=== PATIENT | female | born 1940 | race Two or more races ===

== ENCOUNTER 2017-08-01 03:18 | Inpatient (IN) | payer MEDICARE ==
[~2017-08-01] VITALS: Ht 149.9 cm; Wt 65.3 kg
--- NOTE | 2017-08-01 05:40 | NUR ---
GPS/DEPOSITING MACHINE OPERATOR NOTES: PT. ARRIVED TO UNIT. VERBALLY ABUSIVE AND UNCOOPERATIVE. PT. DIRECTED TO GO TO ROOM AND BED. PT. AGITATED AND STATING " I WILL FALL, I WILL FALL AND YOU CANT DO NOTHING ABOUT IT." PT. AMBULATORY. WILL CONTINUE TO MONITOR.
[2017-08-01] MEDS ORDERED: ASPI-1169 PO (05:56)
[2017-08-01] MEDS ORDERED: ATOR20TA PO (05:56)
[2017-08-01] MEDS ORDERED: ACETAMINOPHEN 325 MG TABLET PO PRN (06:00)
[2017-08-01] MEDS ORDERED: LORAZEPAM 0.5 MG TABLET PO PRN (06:00)
[2017-08-01] MEDS ORDERED: MAGNESIUM HYDROXIDE 30 ML UDC PO PRN (06:00)
[2017-08-01] MEDS ORDERED: MAG HYDROX/AL HYDROX/SIMETH 30 ML UDC PO PRN (06:00)
[2017-08-01] MEDS ORDERED: TEMAZEPAM 7.5 MG CAPSULE PO PRN (06:00)
[2017-08-01] MEDS ORDERED: OMEG1CAP55 PO (06:06)
[2017-08-01] MEDS ORDERED: MAGN400T6 PO (06:06)
[2017-08-01] MEDS ORDERED: DOCU100C36 PO (06:06)
[2017-08-01] MEDS ORDERED: CHOL20004 PO (06:06)
[2017-08-01] MEDS ORDERED: NAPR-1192 PO (06:06)
[2017-08-01] MEDS ORDERED: TRAM100T14 PO (06:06)
[2017-08-01] MEDS ORDERED: [UNRECOGNIZED DRUG - CODE] PO (06:06)
[2017-08-01] MEDS ORDERED: ALPR0.5T8 PO (06:06)
--- NOTE | 2017-08-01 06:32 | NUR ---
GPS/SUPERVISOR BUILDING MAINTENANCE ADMISSION NOTES: RECEIVED A 76YR OLD FEMALE ADMITTED ON A 5150 HOLD DTS. PT. ORIENTED TO UNIT POLICY, PROCEDURE, AND PROTOCOLS. PT HAD NO CONTRABANDS WITH HER. BELONGINGS LOGGED. SAFETY ENVIRONMENT OBSERVED WITH CALL GORDON WITHIN REACH. BED IN LOCKED POSITION. MEDICAL AND PSYCH NOTIFIED OF PT. ADMISSION TO UNIT. NEXT OF KIN CALLED AND LEFT MESSAGE TO CALL BACK UNIT. WILL CONTINUE TO MONITOR.
[2017-08-01 08:00] VITALS: BP 150/61
--- NOTE | 2017-08-01 08:00 | NUR ---
GPS/RN PT IS AGITATED WANTS TO LEAVE THE UNIT. CALLING THE NURSING STUFF NAMES. REFUSED SKIN ASSESSMENT AND RESISTIVE TO CARE.
[2017-08-01] MEDS ORDERED: OMEG-110 PO (08:52)
[2017-08-01] MEDS ORDERED: MAGN200T4 PO (08:52)
--- NOTE | 2017-08-01 10:00 | NUR ---
GPS/RN DR BARRIGA AWARE OF ADMISSION
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
[2017-08-01 16:00] VITALS: BP 134/83
[2017-08-01] MEDS: QUETIAPINE FUMARATE 25 MG TABLET PO SCH (17:00)
--- NOTE | 2017-08-01 17:21 | NUR ---
GPS/RN PT REFUSED CT W/O CONTRAST. PT STATES: " I NEED TO DISCUSS THAT WITH MY DOCTOR". SHOSHANA RN/CHARGE NURSE WITNESSED THE CONVERSATION.
--- NOTE | 2017-08-01 17:53 | NUR ---
PT REFUSED CT SCAN. RN IS AWARE TO REORDER IF NEEDED.
--- NOTE | 2017-08-01 18:03 | NUR ---
GPS/RN PT REFUSED SEROQUEL PO OFFERED X3
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
--- NOTE | 2017-08-01 19:39 | NUR ---
PATIENT IS CALM, AND QUIET AT THIS TIME, [id number] TO HELP HER CALL HER RELATIVES, PATIENT WAS HAPPY AFTER SHE MADE A CALL.
[2017-08-01] MEDS: MIRTAZAPINE 15 MG TABLET PO SCH (19:55)
--- NOTE | 2017-08-01 19:55 | NUR ---
REMERON 7.5 MG TAB PO DUE AT 1999 REFUSED BY PATIENT, EXPLAINED X2,THE BENEFITS OF THE MEDICATION, PATIENT STILL REFUSED. PATIENT IS A/O X3.
[2017-08-01 20:00] VITALS: BP 144/55
[2017-08-01] MEDS ORDERED: TRAMADOL HCL 50 MG TABLET PO PRN (21:00)
[2017-08-02 07:26] LABS: BASOPHILS % (AUTO) 0.6 % (0.0-2.0); EOSINOPHILS # (AUTO) 0.1 /CMM (0.0-0.7); EOSINOPHILS % (AUTO) 1.1 % (0.0-6.0); HEMATOCRIT 42 % (33-45); HEMOGLOBIN 14.5 g/dL (11.5-14.8); LYMPHOCYTES # (AUTO) 2.4 /CMM (0.8-4.8); LYMPHOCYTES % (AUTO) 34.7 % (20.0-44.0); MEAN CORPUSCULAR HEMOGLOBIN 32 PG (26.0-33.0); MEAN CORPUSCULAR HGB CONC 34 g/dl (31.0-36.0); MEAN CORPUSCULAR VOLUME 94 fL (82-100); MONOCYTES # (AUTO) 0.5 /CMM (0.1-1.30); NEUTROPHILS # (AUTO) 3.9 /CMM (1.8-8.9); NEUTROPHILS % (AUTO) 56.6 % (43.0-81.0); PLATELET COUNT (AUTO) 178 /CMM (150-450); RDW COEFFICIENT OF VARIATION 13.5 (11.5-15.0); RED BLOOD CELL COUNT(AUTO) 4.51 MIL/uL (4.0-5.2); WHITE BLOOD COUNT (AUTO) 6.8 K/uL (4.3-11.0)
[2017-08-02 07:55] LABS: ALANINE AMINOTRANSFERASE 28 U/L (12-78); ALBUMIN 3.6 g/dL (3.4-5.0); ALKALINE PHOSPHATASE 59 U/L (46-116); ASPARTATE AMINOTRANSFERASE 23 U/L (15-37); BILIRUBIN,TOTAL 1.7 mg/dL (0.2-1.0); CARBON DIOXIDE 24 mmol/L (21-32); CHLORIDE 107 mmol/L (98-107); CREATININE 0.9 mg/dL (0.6-1.3); GLUCOSE 85 mg/dL (74-106); PHOSPHORUS 3.9 mg/dL (2.5-4.9); POTASSIUM 3.8 mmol/L (3.5-5.1); SODIUM SERUM 143 mmol/L (136-145); TOTAL PROTEIN, SERUM 7.1 g/dL (6.4-8.2); UREA NITROGEN, BLOOD 15 mg/dL (7-18)
[2017-08-02 07:57] LABS: CHOLESTEROL 192 mg/dL (<200); HDL CHOLESTEROL 79 mg/dL (40-60); LDL 103 mg/dL (0-99); TRIGLYCERIDES 75 mg/dL (30-150)
[2017-08-02 08:00] VITALS: BP 134/78
[2017-08-02] MEDS: MAGNESIUM OXIDE 400 MG TABLET PO SCH (09:00)
[2017-08-02] MEDS: CHOLECALCIFEROL 1,000 UNIT TABLET (VIT D3) PO SCH (09:00)
[2017-08-02] MEDS: ASPIRIN 81 MG TAB.CHEW PO SCH (09:00)
[2017-08-02] MEDS ORDERED: Medication Not On Formulary EA (Omega-3 Fatty Acids/Fish Oil (Fish Oil 1,200 Mg Softgel) PO SCH (09:00)
[2017-08-02] MEDS: VITAMIN E 1,000 UNIT CAPSULE PO SCH (09:00)
[2017-08-02] MEDS: QUETIAPINE FUMARATE 25 MG TABLET PO SCH ×2 (09:00→17:00)
[2017-08-02] MEDS: DOCUSATE SODIUM 100 MG CAPSULE PO SCH (09:00)
[2017-08-02] MEDS: ATORVASTATIN 10 MG TABLET PO SCH (09:00)
--- NOTE | 2017-08-02 10:24 | NUR ---
GPS/RN PT REFUSED MORNING MEDS OFFERED X3
[2017-08-02 16:00] VITALS: BP 153/91
[2017-08-02] MEDS: NAPROXEN 250 MG TABLET PO SCH (17:00)
--- NOTE | 2017-08-02 17:26 | NUR ---
GPS/RN PT REFUSED 1700 MEDS OFFERED X3. PT IS VERY ARGUMENTATIVE, NOT REDIRECTABLE AND VERBALLY ABUSIVE TO STUFF.
[2017-08-02 20:00] VITALS: BP 150/87
[2017-08-02] MEDS: MIRTAZAPINE 15 MG TABLET PO SCH (20:00)
--- NOTE | 2017-08-02 20:40 | NUR ---
PATIENT REFUSED HER NIGHT MEDICATION REMERON TONIGHT. THIS IS THE SECOND DAY PATIENT REFUSED HER REMERON DURING NIGHT TIME. WILL NOTIFY MD IF SHE CONTINUES TO REFUSE HER MEDICATION
--- NOTE | 2017-08-03 05:37 | NUR ---
[id number]: PT REFUSED MORNING MEDICATIONS EVEN AFTER EXPLAINED THE BENEFITS AND RISK OF MEDICATIONS
[2017-08-03 08:00] VITALS: BP 122/71
[2017-08-03] MEDS: DOCUSATE SODIUM 100 MG CAPSULE PO SCH (08:24)
[2017-08-03] MEDS: ASPIRIN 81 MG TAB.CHEW PO SCH (08:24)
[2017-08-03] MEDS: MAGNESIUM OXIDE 400 MG TABLET PO SCH (08:24)
[2017-08-03] MEDS: ATORVASTATIN 10 MG TABLET PO SCH (08:24)
[2017-08-03] MEDS: VITAMIN E 1,000 UNIT CAPSULE PO SCH (08:25)
[2017-08-03] MEDS: CHOLECALCIFEROL 1,000 UNIT TABLET (VIT D3) PO SCH (08:25)
[2017-08-03] MEDS: QUETIAPINE FUMARATE 25 MG TABLET PO SCH ×2 (08:25→17:00)
[2017-08-03] MEDS: NAPROXEN 250 MG TABLET PO SCH ×2 (08:25→17:00)
[2017-08-03] MEDS ORDERED: LORAZEPAM INJ 2 MG/ML VIAL IM ONE (10:00)
[2017-08-03] MEDS ORDERED: OLANZAPINE 10 MG VIAL IM ONE (10:00)
--- NOTE | 2017-08-03 10:13 | NUR ---
[id number]: PT IS ANXIOUS, RESTLESS, IRRITABLE, UNCOOPERATIVE, NON-COMPLAINT, UNABLE TO FOLLOW DIRECTIVES, YELLING, SCREAMING, KICKING STAFF, SPITTING, PT WAS ASSISTED TO THE FLOOR WHERE PT STATED, "I WANT TO LIE DOWN HERE." ASSISTED TO GET UP. PROVIDE LESS RESTRICTIVE MEASURES. DECREASED EXTERNAL STIMULI, ESCORTED PT TO ROOM. PT CONTINUE TO YELL AND SCREAM, ATTEMPT TO HIT STAFF. NOTIFIED DR. ANDREW AND ORDERED ZYPREXA 5 MG IM. WILL CONTINUE TO MONITOR FOR EFFECTIVENESS OF MEDICATION Addendum: 08/03/17 at 1040 by LEOLA DEL RIO RN AND ATIVAN 1 MG IM Addendum: 08/03/17 at 1639 by LEOLA DEL RIO RN [id number]: PT WAS OBSERVED TO BE BANGING, FLAILING HER ARMS TO THE NEAREST FURNITURE AND THE LILLY PT IS UNABLE TO FOLLOW DIRECTIONS.
[2017-08-03 16:00] VITALS: BP 138/88
--- NOTE | 2017-08-03 18:00 | NUR ---
[id number]: NOTICED DISCOLORATION ON BOTH ARMS AND HANDS. PT REFUSED FURTHER ASSESSMENT AND PICTURES. DISCUSS WITH THE IMPORTANCE OF PICTURES TO BE TAKEN BUT PT STILL REFUSED AND STARTED TO BECOME IRRITABLE, VERBALLY ABUSIVE TOWARDS STAFF, CURSING. ESCORTED TO PT'S ROOM TO DECREASE EXTERNAL STIMULI. PT REMAINS LYING IN BED. WILL CONTINUE TO MONITOR FOR PT'S BEHAVIOR.
[2017-08-03 19:43] VITALS: BP 112/64
[2017-08-03] MEDS: MIRTAZAPINE 15 MG TABLET PO SCH (20:00)
--- NOTE | 2017-08-03 21:08 | NUR ---
[id number]: PATIENT REFUSED HER NIGHT MEDICATION REMERON TONIGHT. THIS IS THE THIRD DAY PATIENT REFUSED HER REMERON DURING NIGHT TIME. WILL NOTIFY MD IF SHE CONTINUES TO REFUSE HER MEDICATION
[2017-08-04 08:00] VITALS: BP 108/55
[2017-08-04] MEDS: ASPIRIN 81 MG TAB.CHEW PO SCH (08:52)
[2017-08-04] MEDS: ATORVASTATIN 10 MG TABLET PO SCH (08:52)
[2017-08-04] MEDS: DOCUSATE SODIUM 100 MG CAPSULE PO SCH (08:52)
[2017-08-04] MEDS: MAGNESIUM OXIDE 400 MG TABLET PO SCH (08:52)
[2017-08-04] MEDS: NAPROXEN 250 MG TABLET PO SCH ×2 (08:53→16:52)
[2017-08-04] MEDS: VITAMIN E 1,000 UNIT CAPSULE PO SCH (08:54)
[2017-08-04] MEDS: CHOLECALCIFEROL 1,000 UNIT TABLET (VIT D3) PO SCH (08:54)
[2017-08-04] MEDS: QUETIAPINE FUMARATE 25 MG TABLET PO SCH ×3 (08:54→21:34)
[2017-08-04 16:00] VITALS: BP 144/70
[2017-08-04 19:45] VITALS: BP 158/94
[2017-08-04 20:30] VITALS: BP 141/83
[2017-08-05 08:00] VITALS: BP 138/95
[2017-08-05] MEDS ORDERED: QUETIAPINE FUMARATE 25 MG TABLET PO SCH (08:00)
[2017-08-05] MEDS: DOCUSATE SODIUM 100 MG CAPSULE PO SCH (08:31)
[2017-08-05] MEDS: CHOLECALCIFEROL 1,000 UNIT TABLET (VIT D3) PO SCH (08:31)
[2017-08-05] MEDS: ASPIRIN 81 MG TAB.CHEW PO SCH (08:31)
[2017-08-05] MEDS: NAPROXEN 250 MG TABLET PO SCH ×2 (08:31→17:57)
[2017-08-05] MEDS: MAGNESIUM OXIDE 400 MG TABLET PO SCH (08:31)
[2017-08-05] MEDS: ATORVASTATIN 10 MG TABLET PO SCH (08:32)
[2017-08-05] MEDS: QUETIAPINE FUMARATE 25 MG TABLET PO SCH ×3 (08:32→21:09)
[2017-08-05] MEDS: VITAMIN E 1,000 UNIT CAPSULE PO SCH (08:41)
--- NOTE | 2017-08-05 09:40 | NUR ---
Discharge Planning: STEFANIA left another voicemail for outpatient psychiatrist, Marie Turcios [phone]. In the voicemail, STEFANIA provided her direct contact information.
--- NOTE | 2017-08-05 10:02 | NUR ---
Discharge Planning: Upon patient's request, STEFANIA spoke with patient's nephew, Aki [phone]. Aki stated that he did not have concerns about patient returning home and that he will be able to pick her up upon discharge.
[2017-08-05 16:06] VITALS: BP 119/68
[2017-08-05] MEDS: BOOST PLUS FOOD-CHOCLATE 237 ML BOX PO SCH (17:55)
[2017-08-05 20:39] VITALS: BP 138/91
[2017-08-06 08:00] VITALS: BP 154/78
[2017-08-06] MEDS: NAPROXEN 250 MG TABLET PO SCH ×2 (08:50→16:34)
[2017-08-06] MEDS: QUETIAPINE FUMARATE 25 MG TABLET PO SCH ×3 (08:50→21:26)
[2017-08-06] MEDS: DOCUSATE SODIUM 100 MG CAPSULE PO SCH (08:51)
[2017-08-06] MEDS: CHOLECALCIFEROL 1,000 UNIT TABLET (VIT D3) PO SCH (08:51)
[2017-08-06] MEDS: ASPIRIN 81 MG TAB.CHEW PO SCH (08:51)
[2017-08-06] MEDS: MAGNESIUM OXIDE 400 MG TABLET PO SCH (08:51)
[2017-08-06] MEDS: ATORVASTATIN 10 MG TABLET PO SCH (08:51)
[2017-08-06] MEDS: BOOST PLUS FOOD-CHOCLATE 237 ML BOX PO SCH ×2 (08:53→16:34)
[2017-08-06] MEDS: VITAMIN E 1,000 UNIT CAPSULE PO SCH (09:12)
--- NOTE | 2017-08-06 09:16 | NUR ---
OFFERED PATIENT THE URINE SPECIMEN CUP X3, BUT PATIENT DENIED. WILL CONTINUE TO OFFER UNTIL PATIENT HAS TO URINE.
--- NOTE | 2017-08-06 11:11 | NUR ---
Discharge Planning: SW called patient's nephew, Aki [phone] to discuss discharge plan. Aki stated that patient has a lot of support [friends, psychiatrist]. Aki states that he sees her frequently as well. Aki stated that he will be able to pick patient up tomorrow at 2pm for discharge. Aki was in agreement with the plan.
[2017-08-06 13:15] LABS: BILIRUBIN,URINE 1+ (NEGATIVE); BLOOD, URINE NEGATIVE Ery/uL (NEGATIVE); COLOR,URINE YELLOW (YELLOW); KETONES,URINE TRACE (NEGATIVE); LEUKOCYTE ESTERASE ,URINE 1+ (NEGATIVE); NITRITE, URINE NEGATIVE (NEGATIVE); PH,URINE 5.5 (5.0-8.0); PROTEIN,URINE NEGATIVE (NEGATIVE); UGLUCOSE NEGATIVE (NEGATIVE); UROBILINOGEN,URINE 0.2 EU/dL (0.2)
[2017-08-06 13:16] LABS: APPEARANCE,URINE SLIGHTLY CLOUDY (CLEAR)
[2017-08-06 13:24] LABS: BACTERIA,URINE Few /HPF (None Seen); CALCIUM OXALATE CRYSTALS,UR Few /HPF (None Seen); MUCUS,URINE Few /LPF (None Seen); RBC,URINE 0-2 /HPF (0-2); URINE AMORPHOUS URATE Few /HPF (None Seen)
[2017-08-06 16:00] VITALS: BP 138/90
[2017-08-06 19:51] VITALS: BP 117/69
[2017-08-07 08:00] VITALS: BP 100/59
[2017-08-07] MEDS: BOOST PLUS FOOD-CHOCLATE 237 ML BOX PO SCH (08:00)
[2017-08-07] MEDS: MAGNESIUM OXIDE 400 MG TABLET PO SCH (08:38)
[2017-08-07] MEDS: VITAMIN E 1,000 UNIT CAPSULE PO SCH (08:38)
[2017-08-07] MEDS: DOCUSATE SODIUM 100 MG CAPSULE PO SCH (08:38)
[2017-08-07] MEDS: QUETIAPINE FUMARATE 25 MG TABLET PO SCH ×2 (08:39→13:35)
[2017-08-07] MEDS: ASPIRIN 81 MG TAB.CHEW PO SCH (08:39)
[2017-08-07] MEDS: CHOLECALCIFEROL 1,000 UNIT TABLET (VIT D3) PO SCH (08:39)
[2017-08-07] MEDS: NAPROXEN 250 MG TABLET PO SCH (08:39)
[2017-08-07] MEDS: ATORVASTATIN 10 MG TABLET PO SCH (08:39)
--- NOTE | 2017-08-07 09:38 | NUR ---
DR. DEWITT GAVE AN ORDER TO D/C HOLD AND D/C HOME TODAY AND TO FOLLOW UP WITH PSYCH AND MEDICAL DOCTORS.
--- NOTE | 2017-08-07 14:13 | NUR ---
Discharge Note: Patient will be discharged home to [id number] [place] [address] / [phone]. Patient will be picked up by her nephew, Aki [phone] in his private vehicle. Patient and patients nephew are in agreement with the discharge plan. Patient is glad to be going home. Upon discharge, patient is cooperative. Patient denies suicidal and homicidal ideation. Patient denies visual and auditory hallucinations. Patient sees her psychiatrist, Dr. Alistair Turcios [id number] [facility] [place] [address] [phone] three times a week on Mondays, Friday and Fridays. Patient will see her psychiatrist on August 08 at 10:30am. Patient did not want STEFANIA to make appointments with an side splitter. STEFANIA provided patient with resources, which included the [address] [facility] and [address] At Dr[address] Turcios's request, STEFANIA obtained an authorization for release of information from patient. STEFANIA to fax discharge summary to patients psychiatrist, fax # [phone].
--- NOTE | 2017-08-07 14:30 | NUR ---
GPS/RN-NOTES PATIENT DISCHARGE TO HOME TODAY. DR. ANDREW AND EDUCATION TECHNICIAN JOANN AWARE AND AGREES OF PATIENT DISCHARGE. PATIENT DID NOT VERBALIZE SI/HI DENIES VISUAL/AUDITORY HALLUCINATIONS AT THE TIME OF DISCHARGE.ALL DISCHARGE MEDICATIONS WAS REVIEWED WITH THE PATIENT WITH UNDERSTANDING. RX WAS GIVEN TO THE PATIENT. PATIENT LEFT THE UNIT WITH ALL HER BELONGINGS,IN STABLE CONDITION, AMBULATORY ALERT ORIENTED X4. PATIENT NEPHEW BRUNILDA PICK HER UP VIA PRIVATE CAR. SHE WAS ASSISTED BY ONE BUSINESS CONTINUITY ANALYST STAFF IN THE LOBBY FOR SAFETY. PATIENT STRONGLY REFUSED BODY ASSESSMENT PRIOR TO DISCHARGE.
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
--- NOTE | 2017-08-08 09:34 | NUR ---
STEFANIA faxed home health referral to [facility] [phone] / fax # [phone]
== END 2017-08-07 14:30 | disposition home health service (06) | DRG 885 ==
LOC: GPS 03:18
PROVIDERS: ADMIT Psychiatry & Neurology Psychosomatic Medicine; ATTEND Nurse Practitioner Acute Care
DX: F29 Unspecified psychosis not due to a substance or known physiological condition (principal); G93.40 Encephalopathy, unspecified; F32.3 Major depressive disorder, single episode, severe with psychotic features; E78.5 Hyperlipidemia, unspecified; I10 Essential (primary) hypertension; Z73.6 Limitation of activities due to disability
CPT/HCPCS: 36415; 80053-TC; 80061-TC; 81000-TC; 83735-TC; 84100-TC; 84443-TC; 85025-TC; 87081-TC; 87086-TC; J2060; J3490; Z7610